=== PATIENT | male | born 1965 | race Caucasian/White ===

== ENCOUNTER 2018-01-07 11:06 | Inpatient (IN) | payer MEDICAID ==
[~2018-01-07] VITALS: Ht 167.6 cm; Wt 89.8 kg
[~2018-01-07 11:06] MED LIST: AUG500 PO; COR3 PO; ECO81 PO; L20I IV; LAC PO; ZES10 PO; ZOC10 PO
[2018-01-07 11:10] VITALS: Ht 167.6 cm; Wt 89.8 kg
[2018-01-07 11:48] LABS: BASOPHIL % 0.6 % (0-2); PLATELET COUNT 242 x10^3mcL (130-400); RED CELL DISTRIBUTION WIDTH 13.7 % (11.5-14.5)
[2018-01-07 11:51] LABS: CALCIUM 8.1 mg/dL (8.5-10.1); CARBON DIOXIDE 21.1 mmol/L (21-32); CHLORIDE SERUM 108 mmol/L (98-107); CREATININE SERUM 1.3 mg/dL (0.7-1.3); GFR1 > 60 mL/min; GLUCOSE SERUM 157 mg/dL (74-106); POTASSIUM SERUM 3.7 mmol/L (3.5-5.1); SODIUM SERUM 142 mmol/L (136-145)
[2018-01-07 11:55] LABS: ALKALINE PHOSPHATASE 83 U/L (46-116); ALT/SGPT 115 U/L (16-63); AMYLASE 26 U/L (25-115); AST/SGOT 51 U/L (15-37); BILIRUBIN TOTAL 0.97 mg/dL (0.20-1.00); LIPASE 97 IU/L (73-393); TOTAL PROTEIN, SERUM 6.4 g/dL (6.4-8.2)
[2018-01-07 11:56] LABS: ALBUMIN 3.3 g/dL (3.4-5.0)
[2018-01-07 14:24] LABS: AMPHETAMINE QUAL UR POSITIVE (See below)
[2018-01-07 16:16] VITALS: BP 127/91
[2018-01-07 16:19] LABS: CHOLESTEROL/HDL RATIO 5.5; MAGNESIUM 1.9 mg/dL (1.8-2.4); PHOSPHOROUS 2.8 mg/dL (2.5-4.9)
[2018-01-07 16:27] LABS: T3 TOTAL 0.93 ng/mL
[2018-01-07 16:28] LABS: FREE T4 0.9 ng/dL (0.76-1.46); FREE THYROXINE INDEX 1.9 ug/dL (1.4-4.5); T4(THYROXINE) 5.6 ug/dL (4.7-13.3)
[2018-01-07 17:50] VITALS: BP 135/95
[2018-01-07 20:46] VITALS: BP 137/91
[2018-01-08 05:04] VITALS: BP 144/92
[2018-01-08 07:20] LABS: BASOPHIL % 0.8 % (0-2); CALCIUM 8.4 mg/dL (8.5-10.1); CARBON DIOXIDE 25.3 mmol/L (21-32); CHLORIDE SERUM 105 mmol/L (98-107); CREATININE SERUM 1.2 mg/dL (0.7-1.3); GFR1 > 60 mL/min; GLUCOSE SERUM 96 mg/dL (74-106); PHOSPHOROUS 2.9 mg/dL (2.5-4.9); PLATELET COUNT 200 x10^3mcL (130-400); POTASSIUM SERUM 3.2 mmol/L (3.5-5.1); RED CELL DISTRIBUTION WIDTH 13.9 % (11.5-14.5); SODIUM SERUM 142 mmol/L (136-145)
[2018-01-08 09:23] VITALS: BP 134/81
[2018-01-08 13:53] VITALS: BP 131/82
[2018-01-08 18:15] VITALS: BP 111/85
[2018-01-08 20:49] VITALS: BP 109/70
[2018-01-09 05:23] VITALS: BP 114/79
[2018-01-09 06:35] LABS: BASOPHIL % 0.6 % (0-2); PLATELET COUNT 220 x10^3mcL (130-400); RED CELL DISTRIBUTION WIDTH 13.9 % (11.5-14.5)
[2018-01-09 06:41] LABS: CALCIUM 8.6 mg/dL (8.5-10.1); CARBON DIOXIDE 26.2 mmol/L (21-32); CREATININE SERUM 1.4 mg/dL (0.7-1.3); POTASSIUM SERUM 3.2 mmol/L (3.5-5.1)
[2018-01-09 09:40] VITALS: BP 98/62
[2018-01-09 12:39] VITALS: BP 104/74
[2018-01-09 14:08] VITALS: BP 104/74
[2018-01-09] MEDS ORDERED: COR3 PO (15:55)
[2018-01-09] MEDS ORDERED: ALDACTONE25 MG PO (15:59)
[2018-01-09] MEDS ORDERED: ZES10 PO (16:02)
[2018-01-09] MEDS ORDERED: ECO81 PO (16:03)
[2018-01-09] MEDS ORDERED: LIPITOR10 MG PO (16:05)
[2018-01-09] MEDS ORDERED: L40 PO (16:11)
[2018-01-09 16:52] VITALS: BP 114/73
== END 2018-01-09 17:56 | disposition home or self-care (01) | DRG 133 ==
LOC: ED 11:06 → DU 15:19
PROVIDERS: Emergency Medicine; Family Medicine
DX: J96.00 Acute respiratory failure, unspecified whether with hypoxia or hypercapnia (principal); I50.43 Acute on chronic combined systolic (congestive) and diastolic (congestive) heart failure; E44.0 Moderate protein-calorie malnutrition; I42.0 Dilated cardiomyopathy; K76.1 Chronic passive congestion of liver; I11.0 Hypertensive heart disease with heart failure; E78.5 Hyperlipidemia, unspecified; F15.10 Other stimulant abuse, uncomplicated; I34.0 Nonrheumatic mitral (valve) insufficiency; Z79.82 Long term (current) use of aspirin; Z68.38 Body mass index [BMI] 38.0-38.9, adult; F17.210 Nicotine dependence, cigarettes, uncomplicated; Z91.14 Patient's other noncompliance with medication regimen
CPT/HCPCS: 83880; 84439; 94150; J1940; J2550; J3490; J7620; Q0092

== ENCOUNTER 2018-02-28 08:40 | Emergency (ER) | payer MEDICAID ==
[~2018-02-28] VITALS: Ht 170.2 cm; Wt 81.6 kg
[~2018-02-28 08:40] MED LIST changes: +ALDACTONE25 MG PO; +L40 PO; +LIPITOR10 MG PO
[2018-02-28 08:49] VITALS: Ht 170.2 cm; Wt 81.6 kg
[2018-02-28 10:34] VITALS: BP 124/81
== END 2018-02-28 10:36 | disposition home or self-care (01) ==
LOC: ED 08:40
DX: S83.91XA Sprain of unspecified site of right knee, initial encounter (principal); I50.9 Heart failure, unspecified; Z90.89 Acquired absence of other organs; X50.1XXA Overexertion from prolonged static or awkward postures, initial encounter; Y93.89 Activity, other specified; Y92.89 Other specified places as the place of occurrence of the external cause; Y99.8 Other external cause status
CPT/HCPCS: Q0092